=== PATIENT | female | born 1960 | race African-American/Black ===

== ENCOUNTER 2016-12-10 04:56 | Emergency (ER) | payer OTHER ==
[~2016-12-10 04:56] MED LIST: CARB200T6 PO; LISI20TA PO; TRAZ-147 PO
[2016-12-10] MEDS ORDERED: ASPI81 PO (10:26)
== END 2016-12-10 05:04 | disposition left against medical advice (07) ==
LOC: EMS 04:57
DX: F10.129 Alcohol abuse with intoxication, unspecified (principal)

== ENCOUNTER 2016-12-10 10:14 | Emergency (ER) | payer OTHER ==
[~2016-12-10] VITALS: Ht 165.1 cm; Wt 118.0 kg
[2016-12-10] MEDS ORDERED: ASPI81 PO (10:26)
[2016-12-10] MEDS ORDERED: CloNIDine HCL 0.2 MG TABLET PO ONE (12:30)
[2016-12-10] MEDS ORDERED: SODIUM CHLORIDE 0.9% 1,000 ML IV ONE (12:30)
[2016-12-10 12:36] LABS: BASOPHILS % (AUTO) 0.5 % (0.0-2.0); EOSINOPHILS % (AUTO) 1.5 % (1.0-6.0); HEMATOCRIT 43.8 % (36-46); HEMOGLOBIN 14.3 g/dL (12.0-16.0); LYMPHOCYTES # (AUTO) 2.1 K/uL (1.0-4.8); LYMPHOCYTES % (AUTO) 38.3 % (22.0-44.0); MEAN CORPUSCULAR HEMOGLOBIN 31.6 pg (26.0-34.0); MEAN CORPUSCULAR HGB CONC 32.6 G/dL (31.0-37.0); MEAN CORPUSCULAR VOLUME 97 fL (80-100); MONOCYTES # (AUTO) 0.5 K/uL (0.1-1.0); MONOCYTES % (AUTO) 9.1 % (2.0-9.0); NEUTROPHILS # (AUTO) 2.8 K/uL (1.8-7.7); NEUTROPHILS % (AUTO) 50.6 % (40.0-70.0); PLATELET COUNT (AUTO) 242 K/uL (150-450); RED BLOOD CELL COUNT(AUTO) 4.52 MIL/uL (4.00-5.20); RED CELL DISTRIBUTION WIDTH 13.8 % (11.5-14.5); WHITE BLOOD COUNT (AUTO) 5.5 K/uL (4.5-11.0)
[2016-12-10 12:44] LABS: PROTHROMBIN TIME 10.5 SEC (9.4-11.6)
[2016-12-10 12:45] LABS: ANION GAP 10 mmol/L (8-16); CALCIUM, TOTAL 9.2 mg/dL (8.8-10.5); CARBON DIOXIDE 28 mmol/L (22-29); CHLORIDE 105 mmol/L (98-107); CREATININE 0.64 mg/dL (0.60-1.30); GLOMERULAR FILTR. RATE CALC > 60 mL/min (>60); POTASSIUM 3.5 mmol/L (3.5-5.1); SODIUM SERUM 143 mmol/L (136-145); UREA NITROGEN, BLOOD 4 mg/dL (7-18)
[2016-12-10 12:52] LABS: TROPONIN I < 0.02 ng/mL (0.00-0.05)
[2016-12-10 13:06] LABS: AMMONIA 35 umol/L (11-32)
[2016-12-10 13:09] LABS: ALANINE AMINOTRANSFERASE 34 U/L (12-78); ALBUMIN 4.2 g/dL (3.4-5.0); ASPARTATE AMINOTRANSFERASE 36 U/L (15-37); BILIRUBIN,TOTAL 0.2 mg/dL (0.1-1.0); CREATINE KINASE MB 1.6 ng/mL (0-5); CREATINE KINASE, TOTAL 201 U/L (26-192); TOTAL PROTEIN, SERUM 8.9 g/dL (6.4-8.2)
[2016-12-10 13:21] LABS: APPEARANCE,URINE CLEAR (CLEAR); GLUCOSE, URINE (UA) NEGATIVE (NEGATIVE); KETONES,URINE NEGATIVE (NEGATIVE); LEUKOCYTE ESTERASE ,URINE NEGATIVE (NEGATIVE); OCCULT BLOOD,URINE NEGATIVE (NEGATIVE); PH,URINE 6.5 (5.0-8.0); PROTEIN,URINE NEGATIVE (NEGATIVE)
[2016-12-10 13:22] LABS: ADD UA MICROSCOPIC NO
[2016-12-10] MEDS ORDERED: CarBAMazepine 200 MG TABLET PO ONE (15:30)
[2016-12-10] MEDS ORDERED: KETOROLAC TROMETHAMINE 30 MG/ML VIAL IVP ONE (15:45)
[2016-12-10 15:58] VITALS: BP 150/92
== END 2016-12-10 17:21 | disposition home or self-care (01) ==
LOC: EMS 10:15
DX: F14.10 Cocaine abuse, uncomplicated (principal); I10 Essential (primary) hypertension; G40.909 Epilepsy, unspecified, not intractable, without status epilepticus; F17.210 Nicotine dependence, cigarettes, uncomplicated; J45.909 Unspecified asthma, uncomplicated; I50.9 Heart failure, unspecified; J44.9 Chronic obstructive pulmonary disease, unspecified; Z86.73 Personal history of transient ischemic attack (TIA), and cerebral infarction without residual deficits; Z79.82 Long term (current) use of aspirin; Z88.8 Allergy status to other drugs, medicaments and biological substances
CPT/HCPCS: 36415; 70450; 72125; 80053; 80156; 80307; 81003; 82140; 82550; 82553; 84484; 85025; 85610; 85730; 93005; 96360; 96374; 99285; G0480; J1885; J7030

== ENCOUNTER 2017-11-09 15:47 | Emergency (ER) | payer OTHER ==
[~2017-11-09] VITALS: Ht 162.6 cm; Wt 53.2 kg
[~2017-11-09 15:47] MED LIST changes: +ASPI81 PO
[2017-11-09 16:27] LABS: BASOPHILS % (AUTO) 0.8 % (0.0-2.0); EOSINOPHILS % (AUTO) 1.8 % (1.0-6.0); HEMATOCRIT 36.7 % (36-46); HEMOGLOBIN 12.5 g/dL (12.0-16.0); LYMPHOCYTES # (AUTO) 2.8 K/uL (1.0-4.8); LYMPHOCYTES % (AUTO) 35.6 % (22.0-44.0); MEAN CORPUSCULAR HEMOGLOBIN 32.5 pg (26.0-34.0); MEAN CORPUSCULAR VOLUME 96 fL (80-100); MONOCYTES # (AUTO) 0.6 K/uL (0.1-1.0); MONOCYTES % (AUTO) 7.2 % (2.0-9.0); NEUTROPHILS # (AUTO) 4.3 K/uL (1.8-7.7); NEUTROPHILS % (AUTO) 54.6 % (40.0-70.0); PLATELET COUNT (AUTO) 221 K/uL (150-450); RED BLOOD CELL COUNT(AUTO) 3.84 MIL/uL (4.00-5.20); RED CELL DISTRIBUTION WIDTH 13.6 % (11.5-14.5)
[2017-11-09 16:37] LABS: ANION GAP 10 mmol/L (8-16); CALCIUM, TOTAL 9.2 mg/dL (8.8-10.5); CARBON DIOXIDE 27 mmol/L (22-29); CHLORIDE 104 mmol/L (98-107); CREATININE 0.63 mg/dL (0.60-1.30); GLOMERULAR FILTR. RATE CALC > 60 mL/min (>60); GLUCOSE,RANDOM 71 mg/dL (70-110); POTASSIUM 3.3 mmol/L (3.5-5.1); SODIUM SERUM 141 mmol/L (136-145); UREA NITROGEN, BLOOD 5 mg/dL (7-18)
[2017-11-09] MEDS ORDERED: SODIUM CHLORIDE 0.9% 1,000 ML IV ONE (16:51)
[2017-11-09 17:02] LABS: ALANINE AMINOTRANSFERASE 29 U/L (12-78); ALBUMIN 3.9 g/dL (3.4-5.0); ALKALINE PHOSPHATASE 68 U/L (46-116); ASPARTATE AMINOTRANSFERASE 25 U/L (15-37); BILIRUBIN,TOTAL 0.4 mg/dL (0.1-1.0); CREATINE KINASE, TOTAL 125 U/L (26-192); TOTAL PROTEIN, SERUM 7.9 g/dL (6.4-8.2)
[2017-11-09 17:04] LABS: GLUCOSE,POINT OF CARE 75 MG/DL (70-110)
[2017-11-09 18:08] LABS: CARBAMAZEPINE (TEGRETOL) < 0.5 mcg/mL (4.0-12.0)
[2017-11-09 18:15] LABS: APPEARANCE,URINE CLEAR (CLEAR); BILIRUBIN,URINE NEGATIVE (NEGATIVE); GLUCOSE, URINE (UA) NEGATIVE (NEGATIVE); KETONES,URINE NEGATIVE (NEGATIVE); NITRATE,URINE NEGATIVE (NEGATIVE); OCCULT BLOOD,URINE NEGATIVE (NEGATIVE); PROTEIN,URINE NEGATIVE (NEGATIVE)
[2017-11-09 18:19] LABS: AMPHET/METH SCREEN,URINE NEGATIVE (NEGATIVE); BARBITURATE SCREEN, URINE NEGATIVE (NEGATIVE); BENZODIAZEPINES SCREEN,URINE NEGATIVE (NEGATIVE); CANNABINOID SCREEN,URINE POSITIVE (NEGATIVE); COCAINE SCREEN,URINE POSITIVE (NEGATIVE); METHADONE SCREEN, URINE NEGATIVE (NEGATIVE); OPIATE SCREEN,URINE NEGATIVE (NEGATIVE)
[2017-11-09 18:21] LABS: PHENCYCLIDINE SCREEN,URINE NEGATIVE (NEGATIVE)
[2017-11-09 18:27] LABS: BACTERIA,URINE None Seen /HPF (None Seen); LEUKOCYTE ESTERASE ,URINE TRACE (NEGATIVE); RBC,URINE None Seen /HPF (0-2); SQUAMOUS EPITHELIAL CELL,UR Many /LPF (None Seen); WBC,URINE 0-2 /HPF (0-5)
[2017-11-09] MEDS ORDERED: CarBAMazepine 200 MG TABLET PO ONE (19:45)
[2017-11-09] MEDS ORDERED: ACETAMINOPHEN 500 MG TABLET PO ONE (21:15)
[2017-11-09 21:17] LABS: GLUCOSE,POINT OF CARE 99 MG/DL (70-110)
[2017-11-09 21:38] VITALS: BP 128/76
== END 2017-11-09 21:53 | disposition home or self-care (01) ==
LOC: EMS 15:51
DX: J40 Bronchitis, not specified as acute or chronic (principal); G40.909 Epilepsy, unspecified, not intractable, without status epilepticus; F14.10 Cocaine abuse, uncomplicated; J45.909 Unspecified asthma, uncomplicated; I11.0 Hypertensive heart disease with heart failure; I50.9 Heart failure, unspecified; J44.9 Chronic obstructive pulmonary disease, unspecified; F17.210 Nicotine dependence, cigarettes, uncomplicated; Z86.73 Personal history of transient ischemic attack (TIA), and cerebral infarction without residual deficits; Z88.8 Allergy status to other drugs, medicaments and biological substances; Z91.018 Allergy to other foods
CPT/HCPCS: 36415; 70450; 71045; 80053; 80156; 80307; 81001; 82550; 82553; 82962; 83880; 84484; 85025; 85610; 85730; 93005; 99285; G0480; J7030